=== PATIENT | female | born 1940 | race Caucasian/White ===

== ENCOUNTER 2019-05-08 19:59 | Emergency (ER) | payer OTHER ==
[~2019-05-08] VITALS: Ht 157.5 cm; Wt 76.4 kg
[2019-05-08] MEDS ORDERED: LEVO25TA5 PO (20:15)
[2019-05-08] MEDS ORDERED: LOSA50TA88 PO (20:15)
[2019-05-08] MEDS ORDERED: ASPI81TA21 PO (20:15)
[2019-05-08] MEDS ORDERED: CLOP75TA2 PO (20:15)
[2019-05-08] MEDS ORDERED: K-TA10TA PO (20:15)
[2019-05-08] MEDS ORDERED: CARV25TA PO (20:15)
[2019-05-08] MEDS ORDERED: ATOR40TA75 PO (20:15)
[2019-05-08] MEDS ORDERED: LISI-542 PO (20:15)
[2019-05-08] MEDS ORDERED: PANTOPRAZOLE 40MG INJ (PROTONIX) (C9113) IV ONE (21:45)
[2019-05-08] MEDS ORDERED: NS 1,000 ML IV ONE (21:45)
[2019-05-08] MEDS ORDERED: ONDANSETRON 4MG/2ML VIAL (J2405) IV ONE (21:45)
[2019-05-08 22:13] LABS: BASO % 0.3 % (0.0-1.0); EOS # 0.1 10^3/uL (0.0-0.50); EOS % 1.4 % (0.0-3.0); HEMATOCRIT 34.8 % (36.0-47.0); HEMOGLOBIN 11.1 g/dl (12.0-15.5); LYMPH # 1.1 10^3/uL (1.5-4.5); LYMPH % 13.1 % (24.0-44.0); MEAN CORPUSCULAR HEMOGLOBIN 29.5 pg (27.0-33.0); MEAN CORPUSCULAR HGB CONC 31.9 g/dl (32.0-36.5); MEAN CORPUSCULAR VOLUME 92.6 fl (80.0-96.0); MONO # 0.6 10^3/uL (0.0-0.8); MONO % 7.4 % (0.0-5.0); NEUTROPHILS # 6.6 10^3/uL (1.8-7.7); NEUTROPHILS % 77.3 % (36.0-66.0); PLATELET COUNT, AUTOMATED 174 10^3/uL (150-450); RED BLOOD COUNT 3.76 10^6/uL (4.00-5.40); WHITE BLOOD COUNT 8.6 10^3/uL (4.0-10.0)
[2019-05-08 22:24] LABS: INR 0.97; PROTHROMBIN TIME 12.6 SECONDS (11.8-14.0)
[2019-05-08 22:34] LABS: ALBUMIN 3.6 GM/DL (3.2-5.2); BILIRUBIN,DIRECT 0.2 MG/DL (0.0-0.2); BILIRUBIN,TOTAL 0.7 MG/DL (0.2-1.0); CALCIUM LEVEL 9.4 MG/DL (8.8-10.2); CREATININE FOR GFR 1.23 MG/DL (0.55-1.30); GLOMERULAR FILTRATION RATE 44.8 (>39); POTASSIUM SERUM 3.9 MEQ/L (3.5-5.1)
--- NOTE | 2019-05-08 23:18 | REPVR ---
EXAM: CT Abdomen and Pelvis Without Contrast EXAM DATE/TIME: 05/08/2019 10:22 PM CLINICAL HISTORY: 78 years old, female; Abdominal pain; Generalized; Prior surgery; Additional info: Abd pain TECHNIQUE: Imaging protocol: Axial computed tomography images of the abdomen and pelvis without contrast. Coronal and sagittal reformatted images were created and reviewed. Radiation optimization: All CT scans at this facility use at least one of these dose optimization techniques: automated exposure control; mA and/or kV adjustment per patient size (includes targeted exams where dose is matched to clinical indication); or iterative reconstruction. COMPARISON: No relevant prior studies available. FINDINGS: Lung bases are clear. No pleural effusion. Within the limits of unenhanced examination, the liver, spleen, pancreas and adrenals are grossly normal. Gallbladder is normally distended with no evidence of calcified gallstones. Kidneys are mildly atrophic. Mildly prominent renal pelves with no fabricio hydronephrosis. No focal renal abnormalities or ureterolithiasis. Atherosclerotic changes identified within the abdominal aorta and aortic branch vessels with no evidence of aneurysmal dilatation. Small and large bowel loops are grossly normal. No evidence of enteric obstruction. Small fat containing umbilical hernia with no evidence of bowel involvement. No significant colonic diverticular changes or diverticulitis. Pelvic organs are grossly normal. No significant free fluid in the abdomen or pelvis. Degenerative changes in the spine. Osseous structures are otherwise unremarkable for age. IMPRESSION: No evidence of enteric obstruction. No evidence of obstructive uropathy. No definite acute intra-abdominal or pelvic process on this unenhanced examination. Additional nonemergent findings as described above. Electronically signed by: Ziggy Richard On 05/08/2019 23:18:28 PM
[2019-05-08] MEDS ORDERED: PROT1TAB2 PO (23:26)
[2019-05-08 23:40] VITALS: BP 174/79
== END 2019-05-08 23:42 | disposition home or self-care (01) ==
LOC: M ED 19:59
DX: R10.9 Unspecified abdominal pain (principal); I51.9 Heart disease, unspecified; I10 Essential (primary) hypertension; E03.9 Hypothyroidism, unspecified; K42.9 Umbilical hernia without obstruction or gangrene; M51.9 Unspecified thoracic, thoracolumbar and lumbosacral intervertebral disc disorder; Z95.5 Presence of coronary angioplasty implant and graft; Z79.82 Long term (current) use of aspirin; Z79.899 Other long term (current) drug therapy
CPT/HCPCS: 36415; 74176; 80048; 80076; 81001; 82150; 83690; 85025; 85610; 96361; 96374; 96375; 99284; C9113; J2405

== ENCOUNTER 2024-08-28 08:52 | Emergency (ER) | payer MEDICARE, OTHER ==
[~2024-08-28] VITALS: Ht 157.5 cm; Wt 70.2 kg
[~2024-08-28 08:52] MED LIST: ASPI81TA21 PO; ATOR40TA75 PO; CARV25TA PO; CLOP75TA2 PO; LEVO25TA5 PO; LISI5TAB11 PO; LOSA50TA28 PO; POTA-164 PO; PROT1TAB2 PO
[2024-08-28] MEDS ORDERED: NOVOINJ3 (09:19)
[2024-08-28] MEDS ORDERED: FURO40TA2 (09:19)
[2024-08-28] MEDS ORDERED: PRED20TA (09:19)
[2024-08-28] MEDS ORDERED: EPLE50TA12 (09:19)
[2024-08-28] MEDS ORDERED: CARV6.25 (09:19)
[2024-08-28] MEDS ORDERED: TOUJ1.2I (09:19)
[2024-08-28] MEDS ORDERED: LOSA100T46 (09:19)
[2024-08-28] MEDS ORDERED: AZAT75TA (09:19)
[2024-08-28] MEDS: ACETAMINOPHEN 325 MG TAB PO ONE (10:56)
[2024-08-28 11:05] LABS: BASO % 0.1 % (0.0-1.0); EOS % 0.5 % (0.0-3.0); HEMATOCRIT 32.8 % (36.0-47.0); LYMPH # 1.6 10^3/uL (1.5-5.0); LYMPH % 20.5 % (24.0-44.0); MEAN CORPUSCULAR HEMOGLOBIN 33.7 pg (27.0-33.0); MEAN CORPUSCULAR HGB CONC 33.5 g/dl (32.0-36.5); MEAN CORPUSCULAR VOLUME 100.6 fl (80.0-96.0); MONO # 0.8 10^3/uL (0.0-0.8); NEUTROPHILS # 5.2 10^3/uL (1.5-8.5); NEUTROPHILS % 67.7 % (36.0-66.0); PLATELET COUNT, AUTOMATED 122 10^3/uL (150-450); RED BLOOD COUNT 3.26 10^6/uL (4.00-5.40); WHITE BLOOD COUNT 7.7 10^3/uL (4.0-10.0)
[2024-08-28 11:12] LABS: ERYTHROCYTE SEDIMENTATION RATE 20 mm/hr (0-30)
[2024-08-28 11:28] LABS: C REACTIVE PROTEIN QUANTITATIV < 0.50 MG/DL (<1.0)
[2024-08-28 11:29] LABS: BLOOD UREA NITROGEN 78 MG/DL (9-23); CARBON DIOXIDE LEVEL 25 MMOL/L (20-31); CHLORIDE LEVEL 111 MMOL/L (98-107); CREATININE FOR GFR 2.09 MG/DL (0.55-1.30); GLUCOSE, FASTING 100 MG/DL (74-106); MAGNESIUM LEVEL 1.8 MG/DL (1.8-2.4); POTASSIUM SERUM 4.5 MMOL/L (3.5-5.1); SODIUM LEVEL 143 MMOL/L (136-145)
[2024-08-28] MEDS ORDERED: PILL CUTTER 1 EACH XX ONE (13:02)
[2024-08-28] MEDS: oxyCODONE 5MG TAB PO ONE (13:09)
[2024-08-28] MEDS: BACITRACIN OINTMENT 30GM TUBE TOP ONE (13:24)
[2024-08-28] MEDS ORDERED: GABA-1171 PO (14:53)
[2024-08-28] MEDS ORDERED: OXYC1CAP2 PO (14:53)
[2024-08-28 15:03] VITALS: BP 113/60; TEMP 97.9; O2SAT 97
== END 2024-08-28 15:21 | disposition home or self-care (01) ==
LOC: M ED 08:52
DX: M71.21 Synovial cyst of popliteal space [Baker], right knee (principal); M79.604 Pain in right leg; M54.17 Radiculopathy, lumbosacral region; I25.2 Old myocardial infarction; E78.5 Hyperlipidemia, unspecified; K74.60 Unspecified cirrhosis of liver; E11.9 Type 2 diabetes mellitus without complications; I10 Essential (primary) hypertension; Z90.49 Acquired absence of other specified parts of digestive tract; Z79.84 Long term (current) use of oral hypoglycemic drugs; Z79.82 Long term (current) use of aspirin; Z79.02 Long term (current) use of antithrombotics/antiplatelets; Z79.4 Long term (current) use of insulin; Z79.52 Long term (current) use of systemic steroids; Z79.899 Other long term (current) drug therapy

== ENCOUNTER 2024-09-26 15:14 | Emergency (ER) | payer BC, MEDICARE ==
[~2024-09-26] VITALS: Ht 157.5 cm; Wt 69.6 kg
[~2024-09-26 15:14] MED LIST changes: +AZAT75TA; +CARV6.25; +EPLE50TA12; +FURO40TA2; +GABA-1171 PO; +LOSA100T46; +NOVOINJ3; +OXYC1CAP2 PO; +PRED20TA; +TOUJ1.2I
[2024-09-26 16:22] LABS: HEMATOCRIT 31.5 % (36.0-47.0); LYMPH # 0.4 10^3/uL (1.5-5.0); LYMPH % 6.2 % (24.0-44.0); MEAN CORPUSCULAR HEMOGLOBIN 33.9 pg (27.0-33.0); MEAN CORPUSCULAR HGB CONC 31.7 g/dl (32.0-36.5); MEAN CORPUSCULAR VOLUME 106.8 fl (80.0-96.0); MONO # 0.3 10^3/uL (0.0-0.8); MONO % 3.8 % (2.0-8.0); NEUTROPHILS # 6.4 10^3/uL (1.5-8.5); NEUTROPHILS % 89.2 % (36.0-66.0); RED BLOOD COUNT 2.95 10^6/uL (4.00-5.40); WHITE BLOOD COUNT 7.1 10^3/uL (4.0-10.0)
[2024-09-26 16:29] LABS: ERYTHROCYTE SEDIMENTATION RATE 23 mm/hr (0-30)
[2024-09-26 16:37] LABS: INR 1.05; PARTIAL THROMBOPLASTIN TIME 22.7 SECONDS (24.8-34.2)
[2024-09-26 16:41] LABS: PLATELET COUNT, AUTOMATED 95 10^3/uL (150-450)
[2024-09-26 16:55] LABS: ALBUMIN 3.3 G/DL (3.2-5.2); ALKALINE PHOSPHATASE 57 U/L (35-104); ALT/SGPT 27 U/L (7.0-40); AST/SGOT 31 U/L (<34); BILIRUBIN,DIRECT 0.4 MG/DL (<0.4); BILIRUBIN,TOTAL 1.2 MG/DL (0.3-1.2); BLOOD UREA NITROGEN 52 MG/DL (9-23); C REACTIVE PROTEIN QUANTITATIV < 0.50 MG/DL (<1.0); CALCIUM LEVEL 9.2 MG/DL (8.3-10.6); CARBON DIOXIDE LEVEL 23 MMOL/L (20-31); CHLORIDE LEVEL 109 MMOL/L (98-107); CREATININE FOR GFR 1.41 MG/DL (0.55-1.30); GLOMERULAR FILTRATION RATE 37.8 (>32); GLUCOSE, FASTING 268 MG/DL (74-106); POTASSIUM SERUM 4.5 MMOL/L (3.5-5.1); SODIUM LEVEL 143 MMOL/L (136-145); TOTAL PROTEIN 6.4 G/DL (5.7-8.2)
[2024-09-26 17:02] LABS: PROCALCITONIN 0.12 ng/ml
[2024-09-26] MEDS: MORPHINE 2 MG/ML 1ML VIAL IV ONE (20:00)
[2024-09-26] MEDS: ONDANSETRON 4MG 2ML VIAL IV ONE (20:00)
[2024-09-26 22:27] VITALS: BP 170/78; TEMP 97.1; O2SAT 97
[2024-09-29] MEDS ORDERED: DOXY100C3 PO (10:51)
== END 2024-09-26 22:30 | disposition home or self-care (01) ==
LOC: EEVIPCON 15:14 → M ED 15:14
DX: I87.311 Chronic venous hypertension (idiopathic) with ulcer of right lower extremity (principal); N18.9 Chronic kidney disease, unspecified; I25.10 Atherosclerotic heart disease of native coronary artery without angina pectoris; E11.9 Type 2 diabetes mellitus without complications; Z79.4 Long term (current) use of insulin; I10 Essential (primary) hypertension; Z95.5 Presence of coronary angioplasty implant and graft; Z79.899 Other long term (current) drug therapy